=== PATIENT | female | born 1950 | race Caucasian/White ===

== ENCOUNTER 2018-06-07 22:07 | Emergency (ER) | payer MEDICAID ==
[~2018-06-07] VITALS: Ht 160 cm; Wt 59.0 kg
[2018-06-07 22:52] LABS: BASOPHILS % 0.9 % (0.0-2.0); EOSINOPHILS % 4.1 % (0.0-5.0); HEMOGLOBIN. 11.6 g/dL (12.0-16.0); LYMPHOCYTES % 32.3 % (20.0-50.0); MEAN CORPUSCULAR HEMOGLOBIN 29.1 pg (28.0-32.0); MEAN CORPUSCULAR VOLUME 90.3 fL (81.0-99.0); MEAN PLATELET VOLUME 8.8 fl (7.4-10.4); MONOCYTES % 11.4 % (2.0-8.0); NEUTROPHILS % 51.3 % (40.0-76.0); PLATELET 147 x1000/uL (130-400); RED BLOOD CELL COUNT 3.99 mill/uL (4.2-5.4); RED CELL DISTRIBUTION WIDTH 16.2 % (11.6-14.6)
[2018-06-07 22:57] LABS: CHLORIDE 102 mEq/L (98-107)
[2018-06-07 23:06] LABS: T4 FREE 1.37 ng/dL (0.76-1.46)
[2018-06-07] MEDS ORDERED: AZITHROMYCIN 40MG/ML SUSP 5ML ORAL SYR PO ONE (23:15)
[2018-06-08 02:15] VITALS: BP 159/51
== END 2018-06-08 02:17 | disposition home or self-care (01) ==
LOC: ER 22:07 → CANBEDREQ 06-08 03:04
DX: R07.89 Other chest pain (principal); F41.9 Anxiety disorder, unspecified; N18.6 End stage renal disease; Z99.2 Dependence on renal dialysis
CPT/HCPCS: 36415; 71045; 80053; 83690; 83880; 84439; 84443; 84484; 85025; 93005; 99284; Z7610

== ENCOUNTER 2019-04-14 10:51 | Emergency (ER) | payer MEDICAID ==
[~2019-04-14] VITALS: Ht 162.6 cm; Wt 54.0 kg
[2019-04-14 11:44] LABS: EOSINOPHILS % 2.4 % (0.0-5.0); HEMATOCRIT. 31.2 % (36.0-48.0); HEMOGLOBIN. 10.1 g/dL (12.0-16.0); LYMPHOCYTES % 25.6 % (20.0-50.0); MEAN CORPUSCULAR VOLUME 92.6 fL (81.0-99.0); MEAN PLATELET VOLUME 8.2 fl (7.4-10.4); MONOCYTES % 12.2 % (2.0-8.0); NEUTROPHILS % 58.8 % (40.0-76.0); PLATELET 185 x1000/uL (130-400); RED BLOOD CELL COUNT 3.37 mill/uL (4.2-5.4); RED CELL DISTRIBUTION WIDTH 15.4 % (11.6-14.6)
[2019-04-14 11:49] LABS: CHLORIDE 104 mEq/L (98-107)
[2019-04-14 11:50] LABS: PROTHROMBIN TIME 11.1 sec (9.6-11.0)
[2019-04-14 11:54] LABS: ETHANOL BLOOD < 10 mg/dL
[2019-04-14 11:57] LABS: LDL CHOLESTEROL 75 mg/dL (5-100)
[2019-04-14] MEDS ORDERED: SODIUM CHLORIDE 0.9% 1,000 ML IV ONE (12:31)
[2019-04-14 13:47] VITALS: BP 181/59
[2019-04-14] MEDS ORDERED: IOHEXOL-350 100 ML BOTTLE ONE (13:50)
== END 2019-04-14 14:47 | disposition short-term general hospital (02) ==
LOC: ER 10:51 → CANBEDREQ 13:40 → ER 14:47
DX: I63.512 Cerebral infarction due to unspecified occlusion or stenosis of left middle cerebral artery (principal); I12.9 Hypertensive chronic kidney disease with stage 1 through stage 4 chronic kidney disease, or unspecified chronic kidney disease; E11.22 Type 2 diabetes mellitus with diabetic chronic kidney disease; N18.9 Chronic kidney disease, unspecified; R79.89 Other specified abnormal findings of blood chemistry; D64.9 Anemia, unspecified; Z88.6 Allergy status to analgesic agent
CPT/HCPCS: 36415; 70450; 70496; 70498; 71045; 80053; 80320; 82962; 83721; 84484; 85025; 85610; 93005; 96360; 99285; J7030; Q9967; G0480